=== PATIENT | female | born 1955 | race Caucasian/White ===

== ENCOUNTER 2017-07-12 08:20 | Day surgery (SDC) | payer BC ==
[2017-07-12] MEDS ORDERED: D5 LR 1000 ML 1,000 ML IV ONE (08:29)
[2017-07-12] MEDS ORDERED: DIPRIVAN VIAL 20 ML ONE (09:41)
[2017-07-12 10:33] VITALS: BP 110/60
== END 2017-07-12 10:30 | disposition home or self-care (01) ==
LOC: SURG1 08:20
PROVIDERS: ATTEND Internal Medicine Gastroenterology
PROC: 0DJD8ZZ Inspection of Lower Intestinal Tract, Via Natural or Artificial Opening Endoscopic (ICD-10-PCS; principal; 2017-07-12 10:30)
DX: K64.0 First degree hemorrhoids (principal); Z86.010 Personal history of colon polyps
CPT/HCPCS: A4217; J3490; J7120

== ENCOUNTER → 2017-07-26 | Outpatient (CLI) | payer BC ==
[2017-07-12 10:33] VITALS: BP 110/60
--- NOTE | 2017-07-27 08:14 | MG ---
Examination: Bilateral screening mammogram. Clinical history: Routine screening. History of a prior benign excisional biopsy of the left breast. Technique: Digital CC and MLO views of both breasts were obtained. Computer aided detection analysis was performed and used during the interpretation. Comparison: 06/28/2016. Findings: The breasts are composed of scattered fibroglandular densities. Benign-appearing calcifications and s table benign-appearing densities are present in the breasts bilaterally. Skin moles are seen overlyin g both breasts. No suspicious mass, area of architectural distortion or suspicious cluster of microcalcifications is noted. Impression: 1. No mammographic evidence of malignancy. BI-RADS category 2-benign findings. Recommend routine annual screening mammogram. Diagnostic CAD was utilized and reviewed. * 0 (ZERO) - ASSESSMENT INCOMPLETE; ADDITIONAL IMAGING IS NEEDED. * 0C - ASSESSMENT INCOMPLETE, NEEDS ADDITIONAL IMAGING EVALUATION AND/OR PRIOR MAMMOGRAMS FOR COMPARI SON. * 1/ (ONE) - NEGATIVE. * 2/II (TWO) - BENIGN FINDINGS. * 3/III (THREE) - PROBABLY BENIGN FINDING; SHORT INTERVAL FOLLOW-UP SUGGESTED. * 4/IV (FOUR) - SUSPICIOUS ABNORMALITY; BIOPSY SHOULD BE CONSIDERED. * 5/V - HIGHLY SUSPICIOUS OF MALIGNANCY; BIOPSY SHOULD BE PERFORMED. * 6/IV - KNOWN BIOPSY PROVEN MALIGNANCY-APPROPRIATE ACTION SHOULD BE TAKEN. A NEGATIVE X-RAY REPORT SHOULD NOT DELAY BIOPSY IF A DOMINANT OR CLINICALLY SUSPICIOUS MASS IS PRESENT; 4 TO 8 PERCENT OF CANCERS ARE NOT IDENTIFIED BY X-RAY. A NEGATIVE REPORT MAY REINFORCE THE CLINICAL IMPRESSION. ADENOSIS AND DENSE BREASTS MAY OBSCURE AN UNDERLYING NEOPLASM. Reported By:
== END ==
LOC: RAD 16:00
PROVIDERS: ATTEND Specialist
DX: Z12.31 Encounter for screening mammogram for malignant neoplasm of breast (principal)
CPT/HCPCS: 77067

== ENCOUNTER 2020-03-25 06:31 | Observation (INO) ==
[2020-03-25] MEDS ORDERED: ASPIRIN 81 MG CHEWTAB ONE (06:39)
[2020-03-25 07:12] LABS: BASOPHILS # (AUTO) 0.1 X10^3/uL (0.0-0.1); BASOPHILS % (AUTO) 0.8 % (0.2-1.0); EOSINOPHILS # (AUTO) 0.5 x10^3/uL (0.0-0.2); EOSINOPHILS % (AUTO) 7.3 % (0.9-2.9); HEMATOCRIT 36.2 % (36.0-47.0); LYMPHOCYTES # (AUTO) 2.4 X10^3/uL (1.3-2.9); LYMPHOCYTES % (AUTO) 32.8 % (21.0-51.0); MEAN CORPUSCULAR HEMOGLOBIN 26.1 pg (27.0-34.0); MEAN CORPUSCULAR HGB CONC 33.1 g/dL (33.0-35.0); MEAN CORPUSCULAR VOLUME 78.8 fL (80.0-100.0); MEAN PLATELET VOLUME 6.8 fL (7.4-11.0); MONOCYTES # (AUTO) 0.6 x10^3/uL (0.3-0.8); MONOCYTES % (AUTO) 8.6 % (0.0-13.0); NEUTROPHILS # (AUTO) 3.7 x10^3/uL (2.2-4.8); NEUTROPHILS % (AUTO) 50.5 % (42.0-75.0); PLATELET COUNT 230 X10^3/uL (150.0-450.0); RED BLOOD COUNT 4.59 X10^6/uL (3.5-5.4); RED CELL DISTRIBUTION WIDTH 15.6 % (11.6-16.5); WHITE BLOOD COUNT 7.4 X10^3/uL (3.6-10.0)
--- NOTE | 2020-03-25 07:15 | DR.CP ---
HPI <OTONIEL NUNEZ - Last Filed: 03/25/20 08:13> Time Seen Time Seen by Provider: 03/25/20 06:57 PCP Primary Care Physician: KIMBERLY Complaint Chief Complaint Doctor Comments: A 64 y/o female presenting with c/o chest pain onset yesterday morning and again this a.m. It resolved yesterday with administration of S/L NTG and there was no recurrence until this morning. The episode this morning also has relieved with 1 S/L NG. It was described as a tightness in the chest. There was numbness in the LUE. She had no dyspnea, p alpitations, nausea and vomiting associated. She gave a hx. of an M.I. about 10 yrs. ago. 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 NITRO SL TAKEN AT HOME WITH RELIEF OF PAIN. Self Treatment fo Chief Complaint: NITRO SL COVID-19 Coronavirus risk:travel/contact w/high risk person: No Has patient experienced Coronavirus symptoms: No Reviewed Nurses Notes Review: Yes Source History Provided: Patient Mode of Arrival Mode of Arrival: Ambulatory Timing Onset of Chief Complaint: 03/24/20 Came on: Gradually Pain: Resolved Duration How lon Location Location of Chest Pain: Chest Chest Pain Radiation Location: Left Arm Context Onset: At rest Cardiac Risk Factors: None PE Risk Factors: None History of: Angina Prehospital Care: [facility]itro and ASA Quality Quality: Pressure like Severity Severity: Moderate Modifying Factors Worsens: Nothing Impoves: Nothing Associated Signs and Symptoms Associated Signs and Symptoms: None <NORMA GUTIÉRREZ - Last Filed: 04/02/20 02:03> Complaint Chief Complaint Doctor Comments: CHEST PAIN. PMH <OTONIEL NUNEZ - Last Filed: 03/25/20 08:13> PMH Past Medical History: Yes Past Medical History: Hypertension and [place] Past Surgical History: No Family History History of Family Medical Conditions: No Social History Alcohol Use: None Do you use any recreational Drugs:: No Lives With: Spouse Lives Where: Home Travel Risk Coronavirus risk:travel/contact w/high risk person: No Has patient experienced Coronavirus symptoms: No Infectious screening Have you traveled outside the country in the last 6 months?: No Isolation: Standard ROS <[facility] Filed: 03/25/20 08:13> Review of Systems Constitutional: No Symptoms Reported Eyes: No Symptoms Reported ENTM: No Symptoms Reported Respiratoy: No Symptoms Reported Cardiovascular: Chest Pain Gastrointestinal/Abdominal: No Symptoms Reported Genitourinary: No Symptoms Reported Neurological: No Symptoms Reported Musculoskeletal: No Symptoms Reported Integumentary: No Symptoms Reported Hematologic/Lymphatic: No Symptoms Reported Endocrine: No Symptoms Reported Psychiatric: No Symptoms Reported <NORMA [facility] Filed: 04/02/20 02:03> Review of Systems Constitutional: No Symptoms Reported and See HPI Eyes: No Symptoms Reported ENTM: No Symptoms Reported Respiratoy: No Symptoms Reported Cardiovascular: No Symptoms Reported Gastrointestinal/Abdominal: No Symptoms Reported Genitourinary: No Symptoms Reported Neurological: No Symptoms Reported Musculoskeletal: No Symptoms Reported Integumentary: No Symptoms Reported Hematologic/Lymphatic: No Symptoms Reported Endocrine: No Symptoms Reported Psychiatric: No Symptoms Reported All Other Systems: Reviewed and Negative PE <[facility] Filed: 03/25/20 08:13> Vitals Vitals: Pulse Rate 62 Respiratory Rate 20 Blood Pressure 156/72 O2 Sat by Pulse Oximetry 100 General Limitations: No Limitations General Appearance: Alert and In No Apparent Distress Head Head Exam: Normal Inspection, Atraumatic and Normocephalic Eyes Eye exam: Normal Appearance and EOMI ENT ENT Exam: Normal Exam, Normal Oropharynx, Normal External Ear Exam, Mucous Membranes Moist and TM's Normal Bilaterally Chest Chest Inspection: Normal Inspection and Symmetric Chest Wall Rise Respiratory Respiratory Exam: Normal Lung Sounds Bilat Cardiovascular Cardiovascular Exam: Regular Rate, Normal Rhythm, Normal Heart Sounds, +S1 and +S2 Edema: negative Normal, 1, 2, 3, 4, Plus, Right, Left, Bilateral, Upper, Lower and Extremity Abdominal Exam Abdominal Exam: Normal Inspection, Normal Bowel Sounds and Soft Extremities Extremities Exam: Normal Inspection and Full ROM Back Back Exam: Normal Inspection and Full ROM Neurologic Neurological Exam: Alert and Oriented X3 Psychiatric Psychiatric Exam: Normal Affect and Normal Mood Skin Skin Exam: Dry and Normal Color <NORMA BR[facility] Filed: 04/02/20 02:03> Vitals Vitals: Pulse Rate 62 Respiratory Rate 20 Blood Pressure 156/72 O2 Sat by Pulse Oximetry 100 <NORMA BROCK - Last Filed: 04/02/20 02:03> Differential Diagnosis Differential Diagnosis: Angina, Chest Wall Pain, CHF, Costochondritis, Myocardi al Infarction, Pericarditis, Pleuritis, Pneumonia and Pneumothorax COURSE <OTONIEL NUNEZ - Last Filed: 03/25/20 08:13> Reevaluation 1st: Resolved <NORMA GUTIÉRREZ - Last Filed: 04/02/20 02:03> Treatment Treatment: SEE ORDERS. Education/Counseling Education/Counseling: Patient Educated On: Diagnosis ROR <OTONIEL NUNEZ - Last Filed: 03/25/20 08:13> Labs Reviewed Result Diagrams: 03/26/20 04:35 03/26/20 04:35 Laboratory: WBC 7.4 X10^3/uL (3.6-10.0) 03/25/20 06:46 RBC 4.59 X10^6/uL (3.5-5.4) 03/25/20 06:46 Hgb 12.0 g/dL (12.0-16.0) 03/25/20 06:46 Hct 36.2 % (36.0-47.0) 03/25/20 06:46 MCV 78.8 fL (80.0-100.0) L 03/25/20 06:46 MCH 26.1 pg (27.0-34.0) L 03/25/20 06:46 MCHC 33.1 g/dL (33.0-35.0) 03/25/20 06:46 RDW 15.6 % (11.6-16.5) 03/25/20 06:46 Plt Count 230 X10^3/uL (150.0-450.0) 03/25/20 06:46 MPV 6.8 fL (7.4-11.0) L 03/25/20 06:46 Neut % (Auto) 50.5 % (42.0-75.0) 03/25/20 06:46 Lymph % (Auto) 32.8 % (21.0-51.0) 03/25/20 06:46 [place] % (Auto) 8.6 % (0.0-13.0) 03/25/20 06:46 Eos % (Auto) 7.3 % (0.9-2.9) H 03/25/20 06:46 Baso % (Auto) 0.8 % (0.2-1.0) 03/25/20 06:46 Neut # (Auto) 3.7 x10^3/uL (2.2-4.8) 03/25/20 06:46 Lymph # (Auto) 2.4 X10^3/uL (1.3-2.9) 03/25/20 06:46 [place] # (Auto) 0.6 x10^3/uL (0.3-0.8) 03/25/20 06:46 Eos # (Auto) 0.5 x10^3/uL (0.0-0.2) H 03/25/20 06:46 Baso # (Auto) 0.1 X10^3/uL (0.0-0.1) 03/25/20 06:46 Absolute Nucleated RBC 0.1 /100WBC 03/25/20 06:46 Sodium 145 mmol/L (136-145) 03/25/20 06:46 Corrected Sodium TNP 03/25/20 06:46 Potassium 3.4 mmol/L (3.5-5.1) L 03/25/20 06:46 Chloride 106 mmol/L (98-107) 03/25/20 06:46 Carbon Dioxide 27.7 mmol/L (21-32) 03/25/20 06:46 BUN 15 mg/dL (7-18) 03/25/20 06:46 Creatinine 0.90 mg/dL (0.55-1.02) 03/25/20 06:46 Est GFR (MDRD) Af Amer > 60 (>60) 03/25/20 06:46 Est GFR (MDRD) Non-Af > 60 (>60) 03/25/20 06:46 Glucose 100 mg/dL (65-99) H 03/25/20 06:46 Calcium 9.0 mg/dL (8.5-10.1) 03/25/20 06:46 Corrected Calcium TNP 03/25/20 06:46 Total Bilirubin 0.40 mg/dL (0.2-1.0) 03/25/20 06:46 AST 22 Units/L (15-37) 03/25/20 06:46 ALT 26 Units/L (12-78) 03/25/20 06:46 Alkaline Phosphatase 91 Units/L (46-116) 03/25/20 06:46 Creatine Kinase 99 Units/L (26-192) 03/25/20 06:46 CK-MB (CK-2) 1.5 ng/mL (0-4.0) 03/25/20 06:46 CK/CKMB % Calc 1.5 % (<4) 03/25/20 06:46 Troponin I 0.29 ng/mL (0-1.5) 03/25/20 09:12 Total Protein 7.3 g/dL (6.4-8.2) 03/25/20 06:46 Albumin 3.8 g/dL (3.4-5.0) 03/25/20 06:46 Globulin 3.5 g/dL (2.5-4.5) 03/25/20 06:46 Albumin/Globulin Ratio 1.1 Ratio (1.1-2.1) 03/25/20 06:46 EKG Rate: 60 [place]: Normal Rhythm: NSR Block: None Hypertrophy: LVH ST: Normal <NORMA GUTIÉRREZ - Last Filed: 04/02/20 02:03> Labs Reviewed Laboratory Results Reviewed?: Yes Laboratory: WBC 7.4 X10^3/uL (3.6-10.0) 03/25/20 06:46 RBC 4.59 X10^6/uL (3.5-5.4) 03/25/20 06:46 Hgb 12.0 g/dL (12.0-16.0) 03/25/20 06:46 Hct 36.2 % (36.0-47.0) 03/25/20 06:46 MCV 78.8 fL (80.0-100.0) L 03/25/20 06:46 MCH 26.1 pg (27.0-34.0) L 03/25/20 06:46 MCHC 33.1 g/dL (33.0-35.0) 03/25/20 06:46 RDW 15.6 % (11.6-16.5) 03/25/20 06:46 Plt Count 230 X10^3/uL (150.0-450.0) 03/25/20 06:46 MPV 6.8 fL (7.4-11.0) L 03/25/20 06:46 Neut % (Auto) 50.5 % (42.0-75.0) 03/25/20 06:46 Lymph % (Auto) 32.8 % (21.0-51.0) 03/25/20 06:46 [place] % (Auto) 8.6 % (0.0-13.0) 03/25/20 06:46 Eos % (Auto) 7.3 % (0.9-2.9) H 03/25/20 06:46 Baso % (Auto) 0.8 % (0.2-1.0) 03/25/20 06:46 Neut # (Auto) 3.7 x10^3/uL (2.2-4.8) 03/25/20 06:46 Lymph # (Auto) 2.4 X10^3/uL (1.3-2.9) 03/25/20 06:46 [place] # (Auto) 0.6 x10^3/uL (0.3-0.8) 03/25/20 06:46 Eos # (Auto) 0.5 x10^3/uL (0.0-0.2) H 03/25/20 06:46 Baso # (Auto) 0.1 X10^3/uL (0.0-0.1) 03/25/20 06:46 Absolute Nucleated RBC 0.1 /100WBC 03/25/20 06:46 Sodium 145 mmol/L (136-145) 03/25/20 06:46 Corrected Sodium TNP 03/25/20 06:46 Potassium 3.4 mmol/L (3.5-5.1) L 03/25/20 06:46 Chloride 106 mmol/L (98-107) 03/25/20 06:46 Carbon Dioxide 27.7 mmol/L (21-32) 03/25/20 06:46 BUN 15 mg/dL (7-18) 03/25/20 06:46 Creatinine 0.90 mg/dL (0.55-1.02) 03/25/20 06:46 Est GFR (MDRD) Af Amer > 60 (>60) 03/25/20 06:46 Est GFR (MDRD) Non-Af > 60 (>60) 03/25/20 06:46 Glucose 100 mg/dL (65-99) H 03/25/20 06:46 Calcium 9.0 mg/dL (8.5-10.1) 03/25/20 06:46 Corrected Calcium TNP 03/25/20 06:46 Total Bilirubin 0.40 mg/dL (0.2-1.0) 03/25/20 06:46 AST 22 Units/L (15-37) 03/25/20 06:46 ALT 26 Units/L (12-78) 03/25/20 06:46 Alkaline Phosphatase 91 Units/L (46-116) 03/25/20 06:46 Creatine Kinase 99 Units/L (26-192) 03/25/20 06:46 CK-MB (CK-2) 1.5 ng/mL (0-4.0) 03/25/20 06:46 CK/CKMB % Calc 1.5 % (<4) 03/25/20 06:46 Troponin I 0.29 ng/mL (0-1.5) 03/25/20 09:12 Total Protein 7.3 g/dL (6.4-8.2) 03/25/20 06:46 Albumin 3.8 g/dL (3.4-5.0) 03/25/20 06:46 Globulin 3.5 g/dL (2.5-4.5) 03/25/20 06:46 Albumin/Globulin Ratio 1.1 Ratio (1.1-2.1) 03/25/20 06:46 XRAY XRAY Interpreted by: Radiologist (REPORT NOTED AND DISCUSSED WITH PATIENT.) and Self Opioid <ADEWUNMI SOBOWALE - Last Filed: 03/25/20 08:13> Opioid Risk Tool Age (Jr box if 16-45): No History of Preadolescent Sexual Abuse: No Total: 0 Total Score Risk Category: Low Risk Copyright: [employer] predicting aberrant behaviors <NORMA GUTIÉRREZ - Last Filed: 04/02/20 02:03> Opioid Risk Tool Age (Jr box if 16-45): No Total: 0 Total Score Risk Category: Low Risk <ADEWUNMI SOBOWALE - Last Filed: 03/25/20 08:13> Diagnosis Discharge Problem: Chest pain, rule out acute myocardial infarction, Abnormal cardiac enzyme level Instructions Instructions: Hand Washing, Pbfq-rg-[id number] Nonspecific Chest Pain, Brje-xs-Awxf How to Take Your Blood Pressure, Mbcf-lf-Eqgy Hypertension, Eyjc-vn-Npgq Form - Blood Pressure Record Sheet Pain Medicine Instructions, Apsd-ov-Dwjz Managing Your Hypertension Chest Wall Pain Forms: Precautions for COVID19 Patient Portal Social Distancing ADDITIONAL NOTES <OTONIEL NUNEZ - Last Filed: 03/25/20 08:13> Additional Notes Additional Notes: [id number] 1955 Sex: F Location: ER Order Number(s): [id number] Procedure(s):CHEST, 1 VIEW Ordering Physician: OTONIEL NUNEZ Primary Care: Mati Mendoza Service Date: 03/25/20 Service Time: 656 HISTORY Chest pain STUDY Chest AP portable COMPARISON None FINDINGS The heart is within normal limits in size. The cory are normal. The lung estes are clear. No pleural effusions are identified. Bony thorax is unremarkable. IMPRESSION No significant abnormality identified Electronically signed by: MARIKA CORDOVA (Mar 25, 2020 07:17:59)
--- NOTE | 2020-03-25 07:20 | RAD ---
HISTORYChest painSTUDYChest AP portableCOMPARISONNoneFINDINGSThe heart is within normal limits in size. The cory are normal. The lung estes are clear. No pleural effusions are identified. Bony thorax is unremarkable.IMPRESSIONNo significant abnormality identifiedElectronically signed by: MARIKA CORDOVA (Mar 25, 2020 07:17:59)
[2020-03-25 07:21] LABS: BLOOD UREA NITROGEN 15 mg/dL (7-18); CARBON DIOXIDE 27.7 mmol/L (21-32); CHLORIDE 106 mmol/L (98-107); SODIUM 145 mmol/L (136-145); eGFR NON BLACK RACES > 60 (>60)
[2020-03-25 07:25] LABS: ALANINE AMINOTRANSFERASE 26 Units/L (12-78); ALBUMIN 3.8 g/dL (3.4-5.0); ALKALINE PHOSPHATASE 91 Units/L (46-116); ASPARTATE AMINO TRANSFERASE 22 Units/L (15-37); CKMB % 1.5 % (<4); CREATINE KINASE 99 Units/L (26-192); CREATINE KINASE MB 1.5 ng/mL (0-4.0); TOTAL PROTEIN 7.3 g/dL (6.4-8.2)
[2020-03-25] MEDS ORDERED: ASPIRIN 81 MG CHEWTAB PO SCH (09:00)
[2020-03-25] MEDS ORDERED: NITROSTAT SL PRN (10:08)
--- NOTE | 2020-03-25 11:31 | DR.H&P ---
H&P - History & Physical for Day of: H&P Date: 03/25/20 - Chief Complaint Chief Complaint: CHEST PAIN - History of Present Illness History of Present Illness: IS A 64 YEAR OLD PATIENT OF OURS. SHE PRESENTED TO THE ER WITH COMPLAINTS OF CHEST PAIN THAT STARTED ONE DAY PRIOR. PAIN IS DESCRIBED TIGHTNESS IN THE CHEST AND IS RATED 5/10. PAIN WAS RELIEVED YESTERDAY BY A NITROGLYCERIN, HOWEVER, PAIN RETURNED THIS MORNING. SHE ALSO ADM ITTED TO LEFT UPPER EXTREMITY NUMBNESS. SHE DENIED SHORTNESS OF BREATH, PALPITATIONS, NAUSEA, OR VOMITING. SHE HAS A HISTORY OF ID ABOUT 10 YEARS AGO. 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 OTHER MEDICAL HISTORY INCLUDES HYPOTHYROIDISM, HTN, AND HYPERLIPIDEMIA. ON ARRIVAL TO THE ER, VITALS WERE 98.2-61-23-100%-156/73. LABS WERE OBTAINED. ABNORMAL LAB VALUES INCLUDE THE FOLLOWING: POTASSIUM 3.4, GLUCOSE 100. CARDIAC ENZYMES WERE WITHIN NORMAL LIMITS. EKG REVEALED: SINUS RHYTHM WITH HR 60. CHEST XRAY REVEALED: NO SIGNIFICANT ABNORMALITY IDENTIFIED. DUE TO PATIENTS RISK FACTORS, SHE WAS ADMITTED TO THE HOSPITAL FOR FURTHER EVALUATION AND TREATMENT OF CHEST PAIN, RULE OUT ACUTE ID. SHE WAS STARTED ON NORMAL SALINE AT 30 ML/HR, ASPIRIN 325MG PO DAILY, PLAVIX 75MG PO DAILY, PEPCID 20MG IV W12H, SYNTHROID 100MCG PO DAILY, METOPROLOL SUCCINATE 50MG PO DAILY, SIMVASTATIN 40MG PO DAILY, MAXZIDE 37.5/25MG PO DAILY, AND MICRO K 10 MG PO TID WITH MEALS. WE WILL OBTAIN AN ECHO AND SERIAL CARDIAC ENZYMES AND EKGs. OTHERWISE, WE WILL FOLLOW UP WITH AM LABS AND CONTINUE TO MONITOR. - Past Medical History Past Medical History: Dyslipidemia, Hypertension, Hypothyroidism, ID - Past Surgical History Surgical History: Unknown - Social History Alcohol Use: None - Medications Home Medications: No Known Drug Allergies Allergy (Verified 03/25/20 06:43) CONTINUE taking the following medications aspirin 325 mg PO DAILY 03/25/20 [History] cholecalciferol (vitamin D3) 250 mcg PO DAILY 03/25/20 [History] cyanocobalamin (vitamin B-12) [Vitamin B-12] 2,500 mcg SUBLINGUAL WEEKLY 03/25/20 [History] levothyroxine 100 mcg PO DAILY 03/25/20 [History] metoprolol succinate 50 mg PO DAILY 03/25/20 [History] potassium chloride 10 meq PO TIDWM 03/25/20 [History] simvastatin 40 mg PO DAILY 03/25/20 [History] triamterene-hydrochlorothiazid 1 cap PO DAILY 03/25/20 [History] vitamin E 400 unit PO DAILY 03/25/20 [History] - Review of Systems Constitutional: No Symptoms Reported Eyes: No Symptoms Reported ENT: No Symptoms Reported Respiratory: No Symptoms Reported Cardiovascular: Chest Pain Gastrointestinal: No Symptoms Reported Genitourinary: No Symptoms Reported Musculoskeletal: Other (LEFT ARM NUMBNESS ) Skin: No Symptoms Reported Neurological: Weakness - Physical Exam Vital Signs: Temperature 98 F Pulse Rate [Right Brachial] 62 Pulse Rate 62 Respiratory Rate 20 Blood Pressure [Right Arm] 141/69 Blood Pressure 156/72 O2 Sat by Pulse Oximetry 99 Oriented: Normal Eyes: Normal Ear: Normal Nose: Normal Throat: Normal Respiratory: Diminished Throughout Cardiovascular: Normal : Normal Auscultation: Bowel Sounds: Normal Palpation: Normal Tenderness: Normal Skin: Normal Musculoskeletal: Normal Psychiatric: Normal Mood Description: Calm Affect: Normal Speech Pattern: Clear - Assessment/Plan (1) Chest pain, rule out acute myocardial infarction Status: Acute Plan: OBTAIN ECHO, SERIAL CARDIAC ENZYMES AND EKGS, SUPPLEMENTAL OXYGEN, NORMAL SALINE AT 30 ML/HR, ASPIRIN 325MG PO DAILY, PLAVIX 75MG PO DAILY, PEPCID 20MG IV W12H, SYNTHROID 100MCG PO DAILY, METOPROLOL SUCCINATE 50MG PO DAILY, SIMVASTATIN 40MG PO DAILY, MAXZIDE 37.5/25MG PO DAILY, AND MICRO K 10 MG PO TID WITH MEALS. - Allergies Allergies/Adverse Reactions: Allergies Allergy/AdvReac Type Severity Reaction Status Date / Time No Known Drug Allergies Allergy Verified 03/25/20 06:43
[2020-03-25] MEDS: MICRO K EXTEN CAP 10 MEQ PO SCH ×2 (12:40→20:48)
[2020-03-25] MEDS: NS 1000 ML 1,000 ML IV SCH (12:40)
[2020-03-25 13:22] VITALS: BMI 26.4
[2020-03-25 16:46] LABS: BILIRUBIN,URINE NEGATIVE (NEGATIVE); BLOOD/HEMOGLOBIN,URINE NEGATIVE (NEGATIVE); GLUCOSE, URINE NEGATIVE (NEGATIVE); KETONES,URINE NEGATIVE (NEGATIVE); LEUKOCYTE ESTERASE ,URINE NEGATIVE (NEGATIVE); NITRITES,URINE NEGATIVE (NEGATIVE); PROTEIN,URINE NEGATIVE (NEGATIVE); UROBILINOGEN,URINE NORMAL (NORMAL)
[2020-03-25 16:55] LABS: APPEARANCE,URINE CLEAR (CLEAR); COLOR,URINE PALE YELLOW (YELLOW)
[2020-03-25 17:54] LABS: CKMB % 1.2 % (<4); CREATINE KINASE 81 Units/L (26-192); CREATINE KINASE MB < 1.0 ng/mL (0-4.0); TROPONIN I 0.22 ng/mL (0-1.5)
[2020-03-25] MEDS ORDERED: PEPCID 20 MG IV PREMIX* 20 MG/50 ML BAG IV ONE (19:41)
[2020-03-25] MEDS: PEPCID 20 MG IV PREMIX* 20 MG/50 ML BAG IV SCH (20:49)
[2020-03-25 21:52] LABS: CKMB % 1.2 % (<4); CREATINE KINASE 84 Units/L (26-192); CREATINE KINASE MB < 1.0 ng/mL (0-4.0); TROPONIN I 0.22 ng/mL (0-1.5)
[2020-03-26] MEDS: NS 1000 ML 1,000 ML IV SCH (01:25)
[2020-03-26 06:02] LABS: BASOPHILS # (AUTO) 0.1 X10^3/uL (0.0-0.1); BASOPHILS % (AUTO) 0.8 % (0.2-1.0); EOSINOPHILS # (AUTO) 0.4 x10^3/uL (0.0-0.2); EOSINOPHILS % (AUTO) 5.2 % (0.9-2.9); HEMATOCRIT 35.5 % (36.0-47.0); HEMOGLOBIN 11.5 g/dL (12.0-16.0); LYMPHOCYTES # (AUTO) 2.5 X10^3/uL (1.3-2.9); LYMPHOCYTES % (AUTO) 30.2 % (21.0-51.0); MEAN CORPUSCULAR HEMOGLOBIN 25.5 pg (27.0-34.0); MEAN CORPUSCULAR HGB CONC 32.3 g/dL (33.0-35.0); MEAN CORPUSCULAR VOLUME 78.8 fL (80.0-100.0); MEAN PLATELET VOLUME 6.8 fL (7.4-11.0); MONOCYTES # (AUTO) 0.7 x10^3/uL (0.3-0.8); NEUTROPHILS # (AUTO) 4.6 x10^3/uL (2.2-4.8); NEUTROPHILS % (AUTO) 55.8 % (42.0-75.0); PLATELET COUNT 214 X10^3/uL (150.0-450.0); RED BLOOD COUNT 4.51 X10^6/uL (3.5-5.4); RED CELL DISTRIBUTION WIDTH 15.9 % (11.6-16.5); WHITE BLOOD COUNT 8.2 X10^3/uL (3.6-10.0)
[2020-03-26 06:08] LABS: ALANINE AMINOTRANSFERASE 23 Units/L (12-78); ALBUMIN 3.5 g/dL (3.4-5.0); ALKALINE PHOSPHATASE 85 Units/L (46-116); ASPARTATE AMINO TRANSFERASE 18 Units/L (15-37); BLOOD UREA NITROGEN 20 mg/dL (7-18); CARBON DIOXIDE 28.9 mmol/L (21-32); CHLORIDE 104 mmol/L (98-107); CHOL/HDL RATIO 2.8 (0.0-5.0); CHOLESTEROL 160 mg/dL (0-200); CREATININE 0.96 mg/dL (0.55-1.02); HDL CHOLESTEROL 58 mg/dL (40-60); SODIUM 142 mmol/L (136-145); TOTAL PROTEIN 6.8 g/dL (6.4-8.2); TRIGLYCERIDES 127 mg/dL (0-150); eGFR NON BLACK RACES > 60 (>60)
[2020-03-26] MEDS: MICRO K EXTEN CAP 10 MEQ PO SCH (06:30)
[2020-03-26 06:43] LABS: PLATELET MORPHOLOGY COMMENT NORMAL (NORMAL)
[2020-03-26 08:57] LABS: CKMB % 1.3 % (<4); CREATINE KINASE 79 Units/L (26-192); CREATINE KINASE MB < 1.0 ng/mL (0-4.0); TROPONIN I 0.18 ng/mL (0-1.5)
[2020-03-26] MEDS ORDERED: SYNTHROID 100 mcg TAB PO SCH (09:00)
[2020-03-26] MEDS ORDERED: ASPIRIN PO SCH (09:00)
[2020-03-26] MEDS ORDERED: PATIENT'S HOME MEDICATION (Vitamin E 400 UNIT) PO SCH (09:00)
[2020-03-26] MEDS ORDERED: PLAVIX PO SCH (09:00)
[2020-03-26] MEDS ORDERED: TOPROL XL PO SCH (09:00)
[2020-03-26] MEDS ORDERED: ZOCOR TAB 40 MG PO SCH (09:00)
[2020-03-26] MEDS ORDERED: VITAMIN D3 125 mcg (5,000 UNITS) PO SCH (09:00)
[2020-03-26] MEDS ORDERED: MAXZIDE 37.5/25 MG PO SCH (09:00)
[2020-03-26] MEDS: PEPCID 20 MG IV PREMIX* 20 MG/50 ML BAG IV SCH (09:10)
[2020-03-26 12:19] VITALS: BP 125/67
[2020-04-01] MEDS ORDERED: VITAMIN B-12 PO SCH (09:00)
== END 2020-03-26 12:50 | disposition home or self-care (01) ==
LOC: MED/SURG 06:33 → ER 06:33 → MED/SURG 10:56
PROVIDERS: ADMIT Internal Medicine; ATTEND Internal Medicine